=== PATIENT | female | born 2000 | race African-American/Black ===

== ENCOUNTER 2021-04-01 15:16 | Emergency (ER) | payer OTHER ==
[~2021-04-01] VITALS: Ht 165.1 cm; Wt 113.4 kg
--- NOTE | ~2021-04-01 | EMS ---
[address] [address] EMS Patient Care Report Name: KHANG COLEMAN Room #: REG TROY Chowdhury#: [id number] Admission: 04/01/21 Attend Phys: Discharge: Date of : 01 Report #: [id number] THIS REPORT FOR: //name// Report Transmitted: 04/01/2021 14:52 EMS Care Summary [place], [place]/[facility] Incident [id number] @ 04/01/2021 14:45 Incident Location [address] [place] [id number] Patient KHANG COLEMAN Female, 20 Years 2000 Patient Address [address] [place] [address] Patient History Morbid Obesity,Anemia, Patient Allergies No known allergies, Patient Medications None Reported, Chief Complaint dog bite to hand and arm Disposition Transported No Lights/[place] [facility] Reason Animal Bite Transported To [facility] Narrative Arrived to find pt walking to ambulance with P42. 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 Pt has [address] [address] EMS Patient Care Report Name: KHANG COLEMAN Room #: REG TROY Chowdhury#: [id number] Admission: 04/01/21 Attend Phys: Discharge: Date of : 01 Report #: [id number] several small wounds to her hand and a wound to her R AC and elbow area. Pt does not remember her last tetnus shot and does not know the shot records of the dog. No current active bleeding. Pt stepped inside ambulance, sat on cot and was secured with cot straps. Pt placed in surgical mask and transported without incident. Care to rn, triage. Initial Vitals @14:51P: 93,R: 18,BP: 135/73,Pain: 8/10,GCS: 15,CO: 2,SpO2: 98,Revised Trauma: 12, @14:54P: 130,BP: 135/90,SpO2: 99, Assessments @14:47MENTAL:Place Oriented,Event Oriented,Time Oriented,Person Oriented,SKIN:HEENT:Head/Face: No Abnormalities,Neck/Airway: No Abnormalities,LUNG SOUNDS:General: No Abnormalities,Left Upper: No Abnormalities,Right Upper: No Abnormalities,Left Lower: No Abnormalities,Right Lower: No Abnormalities,ABDOMEN:General: No Abnormalities,Left Upper: No Abnormalities,Right Upper: No Abnormalities,Left Lower: No Abnormalities,Right Lower: No Abnormalities,PELVIS//GI:No Abnormalities,EXTREMITIES:Right Arm: Other,Left Arm: No Abnormalities,Left Leg: No Abnormalities,Right Leg: No Abnormalities,PULSE:NEURO:No Abnormalities, Impression Laceration/Abrasion/Hematoma (minor surface trauma) Procedures @14:47ALS AssessmentResponse: UnchangedSucceeded@14:50BandagingResponse: UnchangedSucceeded Timeline 14:43,Dispatch Notified 14:44,Call Received 14:45,Dispatched 14:45,En Route 14:46,On Scene 14:47,At Patient 14:47,ALS Assessment,Response: UnchangedSucceeded, 14:50,Bandaging,Response: UnchangedSucceeded, 14:51,BP: 135/73 M,PULSE: 93,RR: 18 R,SPO2: 98 Ox,ETCO2: ,BG: ,PAIN: 8,GCS: 15, 14:54,BP: 135/90 M,PULSE: 130,RR: R,SPO2: 99 Ox,ETCO2: ,BG: ,PAIN: ,GCS: , 14:57,Depart Scene 15:20,At Destination 15:30,Call Closed Disclaimer [email or web address] Copyright 2020 [employer], [address] [address] EMS Patient Care Report Name: KHANG COLEMAN Room #: REG TROY Chowdhury#: [id number] Admission: 04/01/21 Attend Phys: Discharge: Date of : 01 Report #: [id number] This EMS Care Summary contains data elements from the applicable legal record (which may be displayed differently). It is designed to provide pertinent information for the following purposes: continuity of care, clinical quality, and state data reporting. The complete legal record is available to ED staff and administrators of the receiving hospital in [employer]'s Patient Tracker. All data is provided "as is."
[2021-04-01 15:21] VITALS: BP 153/75
[2021-04-01] MEDS ORDERED: MOBIC7.5 MG PO (17:32)
[2021-04-01] MEDS ORDERED: AUGMENTIN 875-1 EACH PO (17:32)
== END 2021-04-01 17:32 | disposition home or self-care (01) ==
LOC: ER 15:16
DX: S51.051A Open bite, right elbow, initial encounter (principal); S61.250A Open bite of right index finger without damage to nail, initial encounter; S61.252A Open bite of right middle finger without damage to nail, initial encounter; S61.254A Open bite of right ring finger without damage to nail, initial encounter; W54.0XXA Bitten by dog, initial encounter; Y93.89 Activity, other specified; Y92.89 Other specified places as the place of occurrence of the external cause; Y99.0 Civilian activity done for income or pay